=== PATIENT | female | born 1995 | race Caucasian/White ===

== ENCOUNTER 2018-11-05 20:11 | Emergency (ER) | payer BC, OTHER ==
[~2018-11-05] VITALS: Ht 170.2 cm; Wt 59.9 kg
[2018-11-05 20:27] VITALS: BP 144/90
--- NOTE | 2018-11-05 20:33 | NUR ---
PT AMBULATED TO LOBBY WITH VSS.
--- NOTE | 2018-11-05 21:11 | NUR ---
PT AMBULATED TO BED 03
--- NOTE | 2018-11-05 21:23 | NUR ---
23 Y/O FEMALE PRESENTS TO ED, C/O RASH. PT STATES RASH APPEARED ON RIGHT SIDE OF TORSO TO LEG A WEEK AGO. WENT TO PCP AND GOT STEROID SHOT. RASH DID NOT DECREASE. RASH STARTED APPEARING ON BOTH LEGS AND FACE. WENT TO PCP TODAY BEEF BREAKER AND RECEIVED ANOTHER STEROID SHOT BUT WAS INEFFECTIVE. PT HAS NO SOB OR CHEST PAIN. DENIES ANY ALLERGIES. PT VSS. ERMD AWARE. WILL CONTINUE TO MONITOR.
--- NOTE | 2018-11-05 23:22 | NUR ---
PT C/O OF INCREASED ITCHINESS AROUND BODY. ERMD AWARE WILL CONTINUE TO MONITOR.
[2018-11-05 23:35] VITALS: BP 141/83
--- NOTE | 2018-11-05 23:35 | NUR ---
PT DISCHARGED WITH PAPERWORK. RX PREDISONE FOR RASH. EDUCATED PT REGARDING MEDICATION AND S/E. EDUCATED PT REGARDING D/C DIAGNOSIS. PT VERBALIZED UNDERSTANDING OF TEACHING. TOLD PT TO FOLLOW UP WITH PCP AND WHEN TO RETURN TO ED. PT VSS. ALL QUESTIONS ANSWERED.
== END 2018-11-05 23:35 | disposition home or self-care (01) ==
LOC: MED 20:11
DX: R21 Rash and other nonspecific skin eruption (principal)
CPT/HCPCS: 81002; 81025; 99283

== ENCOUNTER 2018-11-20 09:43 | Inpatient (IN) | payer BC ==
[~2018-11-20] VITALS: Ht 167.6 cm; Wt 61.0 kg
[2018-11-20 09:49] VITALS: BP 132/83
[2018-11-20] MEDS ORDERED: KETOROLAC 30 MG/ML VIAL ONE (10:21)
[2018-11-20] MEDS ORDERED: KETOROLAC 30 MG/ML VIAL IM ONE (10:25)
[2018-11-20] MEDS ORDERED: KETAMINE 500 MG/5 ML VIAL IVP ONE ×2 (12:15→15:35)
[2018-11-20] MEDS ORDERED: NACL 0.9% 1,000 ML IV ONE (12:15)
[2018-11-20] MEDS ORDERED: ACETAMINOPHEN 325 MG TAB PO PRN (12:45)
[2018-11-20 13:06] LABS: BASOPHILS % (AUTO) 0.3 % (0.0-2.0); EOSINOPHILS % (AUTO) 0.4 % (0.0-4.0); HEMOGLOBIN 14.5 g/dL (12.0-16.0); LYMPHOCYTES # (AUTO) 1.3 K/uL (2.5-16.5); LYMPHOCYTES % (AUTO) 15.2 % (20.5-51.1); MEAN CORPUSCULAR HEMOGLOBIN 32 pg (27-31); MEAN CORPUSCULAR HGB CONC 34 g/dL (33-37); MEAN CORPUSCULAR VOLUME 96.2 fL (80-94); MONOCYTES # (AUTO) 0.5 K/uL (0.8-1.0); MONOCYTES % (AUTO) 6.3 % (1.7-9.3); NEUTROPHILS # (AUTO) 6.6 K/uL (1.8-7.7); NEUTROPHILS % (AUTO) 77.8 % (42.2-75.2); PLATELET COUNT (AUTO) 206 K/uL (140-450); RED BLOOD CELL COUNT(AUTO) 4.47 MIL/uL (4.20-5.40); RED CELL DISTRIBUTION WIDTH 12.6 % (11.6-13.7); WHITE BLOOD COUNT (AUTO) 8.5 K/uL (4.8-10.8)
[2018-11-20] MEDS ORDERED: fentaNYL 0.05 MG/ML VIAL ONE (13:49)
[2018-11-20 14:27] LABS: BARBITURATE, URINE NEG. ng/ml (NEG <=200); BENZODIAZEPINE, URINE NEG. ng/mL (NEG <=200); CANNABINOID, URINE POS. ng/mL (NEG <=50); COCAINE, URINE NEG. ng/mL (NEG <=300); OPIATE, URINE NEG. ng/mL (NEG <=2000); PHENCYCLIDINE SCREEN,URINE NEG. ng/mL (NEG <=25)
[2018-11-20] MEDS ORDERED: ATA25 PO (14:32)
[2018-11-20 14:35] LABS: FREE T4 (FREE THYROXINE) 0.91 ng/dL (0.76-1.46); MAGNESIUM 1.8 mg/dL (1.8-2.4); PHOSPHORUS 1.9 mg/dL (2.5-4.9); THYROID STIMULATING HORMONE 1.67 uIU/mL (0.34-3.74)
[2018-11-20] MEDS: MORPHINE SULFATE 2 MG/ML SYR IVP PRN ×2 (15:50→20:51)
[2018-11-20] MEDS: HYDROcodone/APAP 7.5/325 MG 1 TAB PO PRN ×2 (17:29→23:02)
[2018-11-20 18:02] LABS: APPEARANCE,URINE CLEAR (CLEAR); BILIRUBIN,URINE NEGATIVE (NEGATIVE); BLOOD, URINE NEGATIVE (NEGATIVE); COLOR,URINE YELLOW (YELLOW); LEUKOCYTE ESTERASE ,URINE 2+ (NEGATIVE); NITRITE, URINE NEGATIVE (NEGATIVE); UGLUCOSE NEGATIVE (NEGATIVE)
[2018-11-20 18:12] LABS: RBC,URINE 0-5 /HPF (0-5)
[2018-11-20 18:48] LABS: ANION GAP 14.8 (8-16); CREATININE 0.7 mg/dL (0.6-1.3); POTASSIUM 3.8 mmol/L (3.5-5.1)
[2018-11-20] MEDS ORDERED: FLUOCINONIDE 0.05% OINT 30 GM TUBE TP SCH (19:30)
[2018-11-20 20:00] VITALS: BP 108/64
[2018-11-20] MEDS: DOCUSATE SODIUM 100 MG GELCAP PO SCH (20:51)
[2018-11-20] MEDS ORDERED: cefTRIAXone 1,000 MG VIAL ONE (23:38)
[2018-11-21] VITALS: BP 114/72
[2018-11-21] MEDS: MORPHINE SULFATE 2 MG/ML SYR IVP PRN ×4 (00:07→17:37)
[2018-11-21 04:00] VITALS: BP 122/70
[2018-11-21 08:00] VITALS: BP 115/68
[2018-11-21] MEDS: DOCUSATE SODIUM 100 MG GELCAP PO SCH ×2 (08:48→21:02)
[2018-11-21 08:50] LABS: CHOL/HDL RATIO 4.7 (1-4.5)
[2018-11-21] MEDS: FLUOCINONIDE 0.05% OINT 30 GM TUBE TP SCH ×2 (08:55→21:03)
[2018-11-21] MEDS ORDERED: KETOROLAC 15 MG/ML VIAL IVP PRN (10:25)
[2018-11-21 12:00] VITALS: BP 118/64
[2018-11-21] MEDS ORDERED: LORazepam 1 MG TAB PO SCH (13:40)
[2018-11-21 16:00] VITALS: BP 116/67
[2018-11-21] MEDS: KETOROLAC 15 MG/ML VIAL IVP SCH ×2 (18:34→23:17)
[2018-11-21 20:00] VITALS: BP 111/63
[2018-11-22] VITALS: BP 103/57
[2018-11-22 04:00] VITALS: BP 107/61
[2018-11-22] MEDS: KETOROLAC 15 MG/ML VIAL IVP SCH ×4 (05:57→23:43)
[2018-11-22 06:46] LABS: MAGNESIUM 1.7 mg/dL (1.8-2.4); PHOSPHORUS 4.7 mg/dL (2.5-4.9)
[2018-11-22 07:05] LABS: BASOPHILS % (AUTO) 0.3 % (0.0-2.0); EOSINOPHILS # (AUTO) 0.1 K/uL (0-0.4); EOSINOPHILS % (AUTO) 2.2 % (0.0-4.0); HEMATOCRIT 40.3 % (36-48); HEMOGLOBIN 13.6 g/dL (12.0-16.0); LYMPHOCYTES # (AUTO) 1.4 K/uL (2.5-16.5); LYMPHOCYTES % (AUTO) 21.4 % (20.5-51.1); MEAN CORPUSCULAR HEMOGLOBIN 33 pg (27-31); MEAN CORPUSCULAR HGB CONC 34 g/dL (33-37); MEAN CORPUSCULAR VOLUME 96.3 fL (80-94); MONOCYTES # (AUTO) 0.7 K/uL (0.8-1.0); NEUTROPHILS # (AUTO) 4.1 K/uL (1.8-7.7); NEUTROPHILS % (AUTO) 65.1 % (42.2-75.2); PLATELET COUNT (AUTO) 184 K/uL (140-450); RED BLOOD CELL COUNT(AUTO) 4.19 MIL/uL (4.20-5.40); RED CELL DISTRIBUTION WIDTH 12.1 % (11.6-13.7); WHITE BLOOD COUNT (AUTO) 6.3 K/uL (4.8-10.8)
[2018-11-22 07:28] LABS: ANION GAP 15.2 (8-16); CARBON DIOXIDE 25.3 mmol/L (21-32); CREATININE 0.7 mg/dL (0.6-1.3); POTASSIUM 3.5 mmol/L (3.5-5.1)
[2018-11-22 08:00] VITALS: BP 110/65
[2018-11-22] MEDS ORDERED: MAGNESIUM OXIDE 400 MG TAB PO SCH (09:00)
[2018-11-22] MEDS: DOCUSATE SODIUM 100 MG GELCAP PO SCH ×2 (09:01→20:17)
[2018-11-22] MEDS: MORPHINE SULFATE 2 MG/ML SYR IVP PRN (09:02)
[2018-11-22] MEDS: FLUOCINONIDE 0.05% OINT 30 GM TUBE TP SCH ×2 (09:04→20:17)
[2018-11-22 12:00] VITALS: BP 110/66
[2018-11-22 16:00] VITALS: BP 108/64
[2018-11-22 23:40] VITALS: BP 114/72
[2018-11-23] MEDS: KETOROLAC 15 MG/ML VIAL IVP SCH ×3 (05:57→12:00)
[2018-11-23 07:06] LABS: ANION GAP 14.8 (8-16); CARBON DIOXIDE 25.6 mmol/L (21-32); CREATININE 0.6 mg/dL (0.6-1.3); POTASSIUM 3.4 mmol/L (3.5-5.1)
[2018-11-23 07:15] LABS: MAGNESIUM 1.8 mg/dL (1.8-2.4)
[2018-11-23 07:23] LABS: BASOPHILS % (AUTO) 0.3 % (0.0-2.0); EOSINOPHILS # (AUTO) 0.2 K/uL (0-0.4); EOSINOPHILS % (AUTO) 3.2 % (0.0-4.0); HEMATOCRIT 36.6 % (36-48); HEMOGLOBIN 12.7 g/dL (12.0-16.0); LYMPHOCYTES # (AUTO) 1.4 K/uL (2.5-16.5); LYMPHOCYTES % (AUTO) 27.1 % (20.5-51.1); MEAN CORPUSCULAR HEMOGLOBIN 33 pg (27-31); MEAN CORPUSCULAR HGB CONC 35 g/dL (33-37); MEAN CORPUSCULAR VOLUME 95.2 fL (80-94); MONOCYTES # (AUTO) 0.7 K/uL (0.8-1.0); MONOCYTES % (AUTO) 12.7 % (1.7-9.3); NEUTROPHILS % (AUTO) 56.7 % (42.2-75.2); PLATELET COUNT (AUTO) 175 K/uL (140-450); RED BLOOD CELL COUNT(AUTO) 3.85 MIL/uL (4.20-5.40); RED CELL DISTRIBUTION WIDTH 12.1 % (11.6-13.7); WHITE BLOOD COUNT (AUTO) 5.2 K/uL (4.8-10.8)
[2018-11-23 08:00] VITALS: BP 115/72
[2018-11-23] MEDS ORDERED: POTASSIUM CHLORIDE 10 MEQ TABER PO SCH (08:30)
[2018-11-23] MEDS: HYDROcodone/APAP 7.5/325 MG 1 TAB PO PRN (08:52)
[2018-11-23] MEDS: DOCUSATE SODIUM 100 MG GELCAP PO SCH ×2 (08:53→20:05)
[2018-11-23] MEDS: FLUOCINONIDE 0.05% OINT 30 GM TUBE TP SCH ×2 (08:54→21:00)
[2018-11-23 16:00] VITALS: BP 121/69
[2018-11-23] MEDS: KETOROLAC 15 MG/ML VIAL IVP PRN (20:01)
[2018-11-24] MEDS: ONDANSETRON 4 MG/2 ML VIAL IVP PRN ×2 (04:40→12:59)
[2018-11-24 06:38] LABS: BASOPHILS % (AUTO) 0.5 % (0.0-2.0); EOSINOPHILS # (AUTO) 0.2 K/uL (0-0.4); EOSINOPHILS % (AUTO) 3.2 % (0.0-4.0); HEMATOCRIT 36.9 % (36-48); HEMOGLOBIN 12.5 g/dL (12.0-16.0); LYMPHOCYTES # (AUTO) 1.9 K/uL (2.5-16.5); LYMPHOCYTES % (AUTO) 31.4 % (20.5-51.1); MEAN CORPUSCULAR HEMOGLOBIN 32 pg (27-31); MEAN CORPUSCULAR HGB CONC 34 g/dL (33-37); MEAN CORPUSCULAR VOLUME 95.3 fL (80-94); MONOCYTES # (AUTO) 0.7 K/uL (0.8-1.0); MONOCYTES % (AUTO) 11.4 % (1.7-9.3); NEUTROPHILS # (AUTO) 3.2 K/uL (1.8-7.7); NEUTROPHILS % (AUTO) 53.5 % (42.2-75.2); PLATELET COUNT (AUTO) 193 K/uL (140-450); RED BLOOD CELL COUNT(AUTO) 3.88 MIL/uL (4.20-5.40); RED CELL DISTRIBUTION WIDTH 11.9 % (11.6-13.7); WHITE BLOOD COUNT (AUTO) 5.9 K/uL (4.8-10.8)
[2018-11-24 07:17] LABS: MAGNESIUM 1.7 mg/dL (1.8-2.4); PHOSPHORUS 3.9 mg/dL (2.5-4.9)
[2018-11-24 07:31] LABS: ANION GAP 13.7 (8-16); CARBON DIOXIDE 26.1 mmol/L (21-32); CREATININE 0.7 mg/dL (0.6-1.3); POTASSIUM 3.8 mmol/L (3.5-5.1)
[2018-11-24 08:00] VITALS: BP 107/77
[2018-11-24] MEDS: FLUOCINONIDE 0.05% OINT 30 GM TUBE TP SCH ×2 (09:00→20:59)
[2018-11-24] MEDS: DOCUSATE SODIUM 100 MG GELCAP PO SCH ×2 (09:05→20:59)
[2018-11-24] MEDS: HYDROcodone/APAP 7.5/325 MG 1 TAB PO PRN ×2 (09:05→18:44)
[2018-11-24] MEDS ORDERED: MAGNESIUM OXIDE 400 MG TAB PO SCH (11:52)
[2018-11-24 16:00] VITALS: BP 115/83
[2018-11-24] MEDS: KETOROLAC 15 MG/ML VIAL IVP PRN (22:46)
[2018-11-25] VITALS: BP 90/50
[2018-11-25 07:29] LABS: BASOPHILS % (AUTO) 0.9 % (0.0-2.0); EOSINOPHILS # (AUTO) 0.3 K/uL (0-0.4); EOSINOPHILS % (AUTO) 5.2 % (0.0-4.0); HEMATOCRIT 35.5 % (36-48); HEMOGLOBIN 12.4 g/dL (12.0-16.0); LYMPHOCYTES # (AUTO) 1.9 K/uL (2.5-16.5); LYMPHOCYTES % (AUTO) 37.3 % (20.5-51.1); MEAN CORPUSCULAR HEMOGLOBIN 33 pg (27-31); MEAN CORPUSCULAR HGB CONC 35 g/dL (33-37); MEAN CORPUSCULAR VOLUME 94.8 fL (80-94); MONOCYTES # (AUTO) 0.6 K/uL (0.8-1.0); MONOCYTES % (AUTO) 11.5 % (1.7-9.3); NEUTROPHILS # (AUTO) 2.3 K/uL (1.8-7.7); NEUTROPHILS % (AUTO) 45.1 % (42.2-75.2); PLATELET COUNT (AUTO) 199 K/uL (140-450); RED BLOOD CELL COUNT(AUTO) 3.74 MIL/uL (4.20-5.40); RED CELL DISTRIBUTION WIDTH 11.9 % (11.6-13.7); WHITE BLOOD COUNT (AUTO) 5.1 K/uL (4.8-10.8)
[2018-11-25 08:00] VITALS: BP 104/63
[2018-11-25 08:00] LABS: CARBON DIOXIDE 25.1 mmol/L (21-32); CREATININE 0.8 mg/dL (0.6-1.3); POTASSIUM 4.1 mmol/L (3.5-5.1)
[2018-11-25 08:01] LABS: MAGNESIUM 2.1 mg/dL (1.8-2.4); PHOSPHORUS 4.7 mg/dL (2.5-4.9)
[2018-11-25] MEDS: DOCUSATE SODIUM 100 MG GELCAP PO SCH ×2 (08:26→20:35)
[2018-11-25] MEDS: KETOROLAC 15 MG/ML VIAL IVP PRN (08:26)
[2018-11-25] MEDS: FLUOCINONIDE 0.05% OINT 30 GM TUBE TP SCH ×2 (08:27→21:00)
[2018-11-25 16:00] VITALS: BP 102/63
[2018-11-25] MEDS: ONDANSETRON 4 MG/2 ML VIAL IVP PRN (18:49)
[2018-11-25] MEDS: HYDROcodone/APAP 7.5/325 MG 1 TAB PO PRN (20:35)
[2018-11-26] VITALS: BP 91/47
[2018-11-26 07:50] VITALS: BP 114/60
[2018-11-26 08:04] LABS: BASOPHILS % (AUTO) 0.4 % (0.0-2.0); EOSINOPHILS # (AUTO) 0.2 K/uL (0-0.4); EOSINOPHILS % (AUTO) 4.5 % (0.0-4.0); HEMATOCRIT 35.7 % (36-48); HEMOGLOBIN 12.3 g/dL (12.0-16.0); LYMPHOCYTES # (AUTO) 1.6 K/uL (2.5-16.5); LYMPHOCYTES % (AUTO) 34.4 % (20.5-51.1); MEAN CORPUSCULAR HEMOGLOBIN 33 pg (27-31); MEAN CORPUSCULAR HGB CONC 34 g/dL (33-37); MONOCYTES # (AUTO) 0.6 K/uL (0.8-1.0); MONOCYTES % (AUTO) 12.5 % (1.7-9.3); NEUTROPHILS # (AUTO) 2.2 K/uL (1.8-7.7); NEUTROPHILS % (AUTO) 48.2 % (42.2-75.2); PLATELET COUNT (AUTO) 195 K/uL (140-450); RED BLOOD CELL COUNT(AUTO) 3.75 MIL/uL (4.20-5.40); RED CELL DISTRIBUTION WIDTH 12.2 % (11.6-13.7); WHITE BLOOD COUNT (AUTO) 4.6 K/uL (4.8-10.8)
[2018-11-26] MEDS: ONDANSETRON 4 MG/2 ML VIAL IVP PRN (08:48)
[2018-11-26] MEDS ORDERED: METOCLOPRAMIDE 10 MG/2 ML INJ VIAL IVP SCH (09:00)
[2018-11-26] MEDS: FLUOCINONIDE 0.05% OINT 30 GM TUBE TP SCH (09:00)
[2018-11-26] MEDS: DOCUSATE SODIUM 100 MG GELCAP PO SCH (09:00)
[2018-11-26 09:31] LABS: MAGNESIUM 1.9 mg/dL (1.8-2.4); PHOSPHORUS 3.9 mg/dL (2.5-4.9)
[2018-11-26 11:15] LABS: ANION GAP 14.4 (8-16); CARBON DIOXIDE 25.9 mmol/L (21-32); CREATININE 0.8 mg/dL (0.6-1.3); POTASSIUM 4.3 mmol/L (3.5-5.1)
== END 2018-11-26 15:55 | disposition short-term general hospital (02) | DRG 199 ==
LOC: MED 09:43 → MTU 12:48
PROVIDERS: ADMIT General Practice; ATTEND General Practice
PROC: 0W9930Z Drainage of Right Pleural Cavity with Drainage Device, Percutaneous Approach (ICD-10-PCS; principal; 2018-11-20)
DX: J93.11 Primary spontaneous pneumothorax (principal); J96.01 Acute respiratory failure with hypoxia; N39.0 Urinary tract infection, site not specified; F41.9 Anxiety disorder, unspecified; F32.9 Major depressive disorder, single episode, unspecified; E83.39 Other disorders of phosphorus metabolism; E83.42 Hypomagnesemia; E87.6 Hypokalemia; Z79.899 Other long term (current) drug therapy
CPT/HCPCS: 32551; 36415; 71045; 71250; 80048; 80305; 81001; 83036; 83735; 84100; 84439; 84443; 84484; 85025; 87081; 87086; 93005; 96360; 96372; 99291; C1751; G0500; J0696; J1885; J2270; J2405; J2765; J3010; J7030; J7060; Q0092; Q0163